=== PATIENT | female | born 2000 | race Caucasian/White ===

== ENCOUNTER 2024-07-03 18:01 | Emergency (ER) | payer OTHER ==
[2024-07-03 18:19] VITALS: TEMP 99.4
--- NOTE | 2024-07-03 18:19 | ERPHSYRPT ---
- History of Present Illness Source: patient Exam Limitations: no limitations Physician History: Patient was rollerskating and fell down. She now has an ankle deformity. There is no hip in the pain. She did not hit her head or lose consciousness. Occurred: just prior to arrival Allergies/Adverse Reactions: fluoxetine [From Prozac] Allergy (Verified 07/03/24 18:05) - Review of Systems Constitutional: No Symptoms Eyes: No Symptoms Neurological: No Symptoms - Nursing Vital Signs Nursing Vital Signs: Initial Vital Signs Blood Pressure 108/73 07/03/24 18:05 O2 Sat by Pulse Oximetry 97 07/03/24 18:05 Pain Scale Pain Intensity 9 - Physical Exam General Appearance: no apparent distress Hips Exam: bilateral: non-tender, normal inspection, normal range of motion, no evidence of injury Legs Exam: bilateral leg: non-tender, normal inspection, normal range of motion, no evidence of injury Knees Exam: bilateral knee: non-tender, normal inspection, normal range of motion, no evidence of injury Ankle Exam: right ankle: other (Deformity. There is good pulses distal to the injury.) Foot Exam: bilateral foot: non-tender, normal inspection, normal range of motion Neuro/Tendon Exam: normal sensation, normal motor functions Skin Exam: normal color, warm, dry Procedures - Joint Reduction Joint Reduction Site: Right, ankle Conscious Sedation: Yes Reduction Attempts: 1 Pre-Procedure Neurovascular Exam: neurovascular intact Post Procedure Neurovascular Exam: neurovascular intact, good alignment Post Joint Reduction Film: joint reduced Progress: Patient was given 225 mg ofKetamine. Postop film was done good reduction was obtained. A posterior leg splint was put on with a sugar-tong on top. She had good capillary and neurovascular function afterwards. - Course Nursing assessment & vital signs reviewed: Yes Ordered Tests: Active Orders 24 hr Category Date Time Status ANKLE (2V) Stat Exams 07/03/24 18:16 Taken Medication Summary Discontinued Medications Generic Name Dose Route Start Last Admin Trade Name Freq PRN Reason Stop Dose Admin Hydromorphone HCl 1 mg 07/03/24 18:40 Hydromorphone 1 Mg/1ml Inj IV 07/03/24 18:41 STAT ONE Hydromorphone HCl Confirm 07/03/24 18:45 Hydromorphone 1 Mg/1ml Inj Administered 07/03/24 18:46 Dose 1 mg .ROUTE .STK-MED ONE Ketamine HCl 150 mg 07/03/24 18:41 Ketamine Hcl 50 Mg/Ml 1.5 mg/kg (150 mg) 07/03/24 18:42 IV STAT STA Ketamine HCl Confirm 07/03/24 18:45 Ketamine Hcl 50 Mg/Ml Administered 07/03/24 18:46 Dose 150 mg .ROUTE .STK-MED ONE Ketamine HCl Confirm 07/03/24 19:04 Ketamine Hcl 50 Mg/Ml Administered 07/03/24 19:05 Dose 100 mg .ROUTE .STK-MED ONE - Progress Progress Note: Patient was stable throughout stay. She tolerated the reduction well. Splint was placed. When to have her follow-up with orthopedics.I spoke with Dr. Sherwood he said he was here in the walk-in clinic tomorrow 07/03/24 19:02 07/03/24 19:11 - Departure Departure Disposition: Home Clinical Impression: Fracture dislocation of right ankle Condition: Stable Critical Care Time: No Referrals: DAYANARA [facility] OPERATOR [Primary Care Provider] - Follow up/PCP as directed Additional Instructions: Going to the walk-in ortho clinic tomorrow am. dr sherwood [phone]
[2024-07-03] MEDS ORDERED: Hydromorphone 1 mg/ml Injection IV ONE (18:40)
[2024-07-03] MEDS ORDERED: Ketamine HCl 50 MG/ML ONE ×2 (18:45→19:04)
[2024-07-03] MEDS ORDERED: Hydromorphone 1 mg/ml Injection ONE (18:45)
[2024-07-03] MEDS: Ketamine HCl 50 MG/ML IV STA (18:50)
[2024-07-03] MEDS: Ketamine HCl 50 MG/ML IV ONE (18:52)
[2024-07-03] MEDS ORDERED: Zofran 4 MG/2 ML VIAL ONE (19:59)
--- NOTE | 2024-07-03 20:02 | XRAY ---
Indication: Trauma. Comparison: None AP/crosstable lateral right ankle demonstrates overlying cast material limiting evaluation for fine bony detail. Minimally displaced fractures medial and posterior malleolus with soft tissue swelling. Additional nondisplaced oblique fracture lateral malleolus.
[2024-07-03] MEDS: Zofran 4 MG/2 ML VIAL IV ONE (20:03)
[2024-07-03 20:19] VITALS: O2SAT 99
[2024-07-03 21:22] VITALS: BP 148/92; PULSE 117; RESP 20
== END 2024-07-03 21:46 | disposition home or self-care (01) ==
LOC: ED 18:01
DX: S82.841A Displaced bimalleolar fracture of right lower leg, initial encounter for closed fracture (principal); V00.121A Fall from non-in-line roller-skates, initial encounter; Y93.51 Activity, roller skating (inline) and skateboarding
CPT/HCPCS: 29515; 73600; 96374; 96375; 96376; 99284; J1171; J2405